=== PATIENT | male | born 1960 ===

== ENCOUNTER 2019-10-06 08:30 | Emergency (ER) | payer OTHER ==
[~2019-10-06] VITALS: Ht 157.5 cm; Wt 85.3 kg
[2019-10-06] MEDS ORDERED: COZAAR100 MG PO (08:56)
[2019-10-06] MEDS ORDERED: MICROZIDE12.5 MG (08:57)
== END 2019-10-06 14:48 | disposition home or self-care (01) ==
LOC: ER 08:30
DX: R42 Dizziness and giddiness (principal)